=== PATIENT | female | born 1955 | race Caucasian/White ===

== ENCOUNTER 2018-04-11 00:17 | Day surgery (SDC) | payer OTHER ==
[~2018-04-11 00:17] MED LIST: ASPI81EC PO; ATEN50 PO; BUPR75 PO; ESOM20 PO; EXEM25 PO; HYDACE5 PO; LETR2.5; LEVSOD137 PO; LOPE2C PO; LORA.5 PO; Multiple Vitam1 EAC1; PROM25 PO; SERT100 PO; TRAZ100 PO; TRAZ50 PO
== END 2018-04-11 09:15 | disposition home or self-care (01) ==
LOC: ATC 00:17
DX: N39.3 Stress incontinence (female) (male) (principal)
CPT/HCPCS: 51798

== ENCOUNTER 2018-04-23 11:08 | Day surgery (SDC) | payer OTHER ==
[~2018-04-23] VITALS: Ht 160 cm; Wt 93.4 kg
[2018-04-23] MEDS ORDERED: LOSA25 (11:56)
[2018-04-23] MEDS ORDERED: HYDCHL25 (11:56)
[2018-04-23] MEDS ORDERED: Levothyroxine200 MCG (11:57)
[2018-04-23] MEDS ORDERED: ESCI20 (11:57)
[2018-04-23] MEDS ORDERED: TAMO10 (11:58)
== END 2018-04-23 13:17 | disposition home or self-care (01) ==
LOC: ORSCSDS 11:08
PROVIDERS: Internal Medicine Gastroenterology
PROC: 0DB68ZX Excision of Stomach, Via Natural or Artificial Opening Endoscopic, Diagnostic (ICD-10-PCS; principal; 2018-04-23 15:30)
PROC: 0DB58ZX Excision of Esophagus, Via Natural or Artificial Opening Endoscopic, Diagnostic (ICD-10-PCS; principal; 2018-04-23 15:30)
DX: R10.12 Left upper quadrant pain (principal); K30 Functional dyspepsia; K21.9 Gastro-esophageal reflux disease without esophagitis; F41.8 Other specified anxiety disorders; G47.33 Obstructive sleep apnea (adult) (pediatric); K44.9 Diaphragmatic hernia without obstruction or gangrene; E66.01 Morbid (severe) obesity due to excess calories; Z68.36 Body mass index [BMI] 36.0-36.9, adult; Z87.891 Personal history of nicotine dependence; Z79.899 Other long term (current) drug therapy
CPT/HCPCS: 88305; 88342; J2250; J7120

== ENCOUNTER 2025-04-02 16:19 | Inpatient (IN) | payer MEDICARE, OTHER ==
[~2025-04-02] VITALS: Ht 160 cm; Wt 170.0 kg
[~2025-04-02 16:19] MED LIST changes: +BUSPIRONE HCL7.5 M1 PO; +CARVEDILOL12.5 MG PO; +ESCI20; +ESCI20 PO; +HYDCHL25; +LOSA25; +Levothyroxine200 MCG; +QUETIAPINE FUMA5012 PO; +TAMO10
[2025-04-03] MEDS ORDERED: Haloperidol Lactate Inj. 5 MG/ML Injection IM PRN (12:20)
[2025-04-03] MEDS ORDERED: FLU VACC TS2025(65UP)/MF59C/PF 45 MCG/0.5 ML SYRINGE IM SCH (12:20)
[2025-04-03] MEDS ORDERED: LORazepam 2 MG/ML 1ML Injection IM PRN (12:25)
[2025-04-03] MEDS ORDERED: DiphenhydrAMINE HCl 50 MG/ML 1ML Vial IM PRN (12:30)
[2025-04-03] MEDS ORDERED: Ondansetron 4 MG SoluTab MM PRN (12:30)
[2025-04-03] MEDS ORDERED: Polyethylene Glycol 3350 17 gm PO PRN (12:30)
[2025-04-03] MEDS ORDERED: Aluminum Hydroxide 320MG/5ML 473 ML PO PRN (12:30)
[2025-04-03] MEDS ORDERED: EUTHYROX125 MCG PO (13:44)
[2025-04-03] MEDS ORDERED: LOSA50 PO (13:48)
[2025-04-03] MEDS ORDERED: Carvedilol12.5 MG PO (13:48)
[2025-04-03 14:08] VITALS: BP 132/83
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
[2025-04-03 18:10] VITALS: BP 156/89
[2025-04-03 19:31] VITALS: BP 129/65
--- NOTE | 2025-04-04 04:38 | NUR ---
SHIFT SSUMMARY: PMP CERTIFIED PROJECT MANAGER/O X4. DENIES SI, HI, AND AVTH. PT IN GOOD MOOD. STATES SHE DOESN'T SLEEP WELL.SHE SAYS THAT SHE HAS CPTSD AND DEPRESSION WITH ANXIETY. SLEPT WELL THROUGH THE NIGHT. WENT TO SNACK AND GROUP. PT IS AWARE THATT SHE IS DISCHARGED TO LEAVE TODAY. TALKS SOFTLY. WILL CONTINUE TO MONITOR Q 15 MIN FOR SAFETY AND WELLNESS.
[2025-04-04 08:47] VITALS: BP 156/70
[2025-04-04] MEDS ORDERED: Multivitamins 1 Tab PO SCH (09:00)
[2025-04-04 12:45] VITALS: BP 147/84
--- NOTE | 2025-04-04 17:07 | NUR ---
Patients daughter visited this evening. She was extreamly grateful stating' "it has been so long since I've seen my mom like this"! She feels that her mom has improved a great deal.
--- NOTE | 2025-04-04 17:09 | NUR ---
SHIFT SUMMARY: PT IS ALERT, ORIENTED AND COOPERATIVE WITH CARE. SHE DENIES SI, HI AND AVH THIS AM. STATES THAT SHE DID NOT SLEEP WELL AND HER MOOD IS "MEAN" . PT IS ENGAGED DURING CONVERSATION AND COMPLIANT WITH MEDCIATIONS. AFFECT IS CONSTRICTED AND HAS APPROPRIATE EYE CONTACT. SHE SPOKE WITH PCI FROM [facility]. PT C/O INCREASED ANXIETY AFTER GROUP. SHE WAS MEDICATED PER EMAR WITH PRN VISTARIL FOR MASS SCORE OF 3. PT HAD A VISIT WITH HER DAUGHTER WHICH APPEARED TO GO WELL. SHE WAS PRESENT ON THE UNIT. SHE ATTENDED GROUPS AND MEALS. SHE SPENT TIME IN THE DAY ROOM WATCHING TV AND TALKING WITH PEERS.
[2025-04-04 20:28] VITALS: BP 152/76
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
--- NOTE | 2025-04-05 05:21 | NUR ---
SHIFT SUMMARY 69 YEAR-OLD FEMALE PRESENTS WELL GROOMED. SHE IS ALERT AND ORIENTED. SHE SPEAKS IN A CLEAR VOICE AND IN AN APPROPRIATE VOLUME. SHE IS ABLE TO MAKE AND KEEP EYE CONTACT DURING CONVERSATIONS. AT THE TIME OF HER ASSESSMENT, SHE DESCRIBED HER MOOD "THIS MORNING I WAS GRUMPY, BUT NOW I'M FEELING HAPPY." SHE ALSO DENIED SI, HI, AND AVTH AT THAT TIME. SHE ATTENDED SNACK. SHE WAS COMPLIANT WITH CARE AND MEDICATION ADMINISTRATION. SHE RECEIVED THE FOLLOWING PRN MEDICATIONS: VISTARIL 50MG FOR ANXIETY (MASS=6). SHE STATED SHE HAD A VERY REALISTIC NIGHTMARE. SHE CONTINUES TO BE MONITORED EVERY 15 MINUTES FOR WELLNESS AND SAFETY.
[2025-04-05 08:13] LABS: CHOL/HDL RATIO 4.0; Cholesterol 233 mg/dL (50-200); HDL Cholesterol 58 mg/dL (>39); LDL/HDL RATIO 2.5; Low Density Lipoprotein Chol 145 mg/dL (0-110); Triglycerides 149 mg/dL (30-160); Very Low Density Lipoprot Chol 29 mg/dL (6-32)
[2025-04-05 08:51] VITALS: BP 149/88
--- NOTE | 2025-04-05 17:37 | NUR ---
SHIFT SUMMARY: PT IS ALERT, ORIENTED AND COOPERATIVE WITH CARE. SHE DENIES SI, HI AND AVH. SHE APPEARS WELL GROOMED AND HAS APPROPRIATE EYE CONTACT. STATES "I'M FEELING VERY ANXIOUS TODAY" RATES ANXIETY AT 10/10 AND WAS MEDICATED WITH PRN VISTARIL PER EMAR FOR MASS SCORE OF 7. VERBALIZED BEING FEARFUL R/T BEHAVIORS OF OTHER PATIENTS. DISCUSSED PLAN WITH PT TO HELP TO ENSURE FEELINGS OF SAFETY WHICH SHE IS AGREEABLE TO. STATES THAT SHE WOKE UP WITH A NIGHTMARE DURING THE NIGHT AND CRAWLED OUT OF HER ROOM TO GET HELP. ENCOURAGED PT TO DISCUSS THIS WITH DR. SOLER, STATES "I DON'T WANT TO TAKE THAT SLEEPING MEDICATION AGAIN". SHE WAS MEDICATED WITH PRN TYLENOL FOR C/O 4/10 NECK/HEAD PAIN PER EMAR. SHE REPORTED RELIEF FROM THE PAIN UPON REASSESSMENT. PT WAS PRESENT ON THE UNIT. SHE ATTENDED MEALS AND GROUPS. SHE HAD A VISIT WITH HER DAUGHTER THAT APPPEARED TO GO WELL. SHE SPENT TIME WATCHING TV IN THE DAY ROOM, RESING IN HER ROOM AND TALKING WITH PEERS AND STAFF.
[2025-04-05 20:40] VITALS: BP 149/76
--- NOTE | 2025-04-06 03:05 | NUR ---
NURSE NOTE PATIENT APPROACHED THE NURSES STATION AT APPROXIMATELY 0200 STATING THAT SHE HAD ANOTHER NIGHTMARE. SHE DESCRIBED THIS NIGHTMARE PEOPLE BEING KILLED. SHE HAD A MASS SCORE OF 5 AND WAS MEDICATED WITH ZYPREXA ZYDIS 10MG AT 0204. CLIENT WANTED TO SIT IN THE SENSORY ROOM AND READ A BOOK SHE TOOK HER PRN MEDICATIONS. SHE CONTINUES TO BE MONITORED EVERY 15 MINUTES FOR WELLNESS AND SAFETY.
--- NOTE | 2025-04-06 05:16 | NUR ---
SHIFT SUMMARY 69 YEAR-OLD FEMALE PRESENTS WELL GROOMED. SHE IS ALERT AND ORIENTED. SHE SPEAKS IN A CLEAR VOICE AND IN AN APPROPRIATE VOLUME. SHE IS ABLE TO MAKE AND KEEP EYE CONTACT DURING CONVERSATIONS. AT THE TIME OF HER ASSESSMENT, SHE DESCRIBED HER MOOD "CALM". SHE ALSO DENIED SI, HI, AND AVTH AT THAT TIME. SHE ATTENDED SNACK. SHE WAS COMPLIANT WITH CARE AND MEDICATION ADMINISTRATION. SHE RECEIVED THE FOLLOWING PRN MEDICATIONS: TYLENOL 650MG FOR 7/10NECK & SHOULDER PAIN, VISTARIL 50MG FOR ANXIETY AT 2119 (MASS=3), ZYPREXA ZYDIS 10MG FOR ANXIETY SECONDARY TO NIGHTMARE AT 0204 (MASS=5). SHE STATED SHE HAD A NIGHTMARE ABOUT PEOPLE BEING KILLED. SHE CONTINUES TO BE MONITORED EVERY 15 MINUTES FOR WELLNESS AND SAFETY.
--- NOTE | 2025-04-06 05:17 | NUR ---
PRN NOTE PATIENT RECEIVED THE FOLLOWING PRN MEDICATIONS DURING WEAPONS ENGINEER: TYLENOL 650MG FOR 7/10 NECK & SHOULDER PAIN, VISTARIL 50MG FOR ANXIETY AT 2119 (MASS=3), ZYPREXA ZYDIS 10MG FOR ANXIETY SECONDARY TO NIGHTMARE AT 0204 (MASS=5).
[2025-04-06 08:56] VITALS: BP 180/92
--- NOTE | 2025-04-06 16:31 | NUR ---
SHIFT SUMMARY: PT IS ALERT, ORIENTED AND COOPERATIVE WITH CARE. SHE DENIES SI, HI AND AVH. SHE APPEARS WELL GROOMED, HAS AN ANXIOUS AFFECT AND APPROPRIATE EYE CONTACT. SHE STATES THAT SHE HAD A NIGHTMARE DURING THE NIGHT AND WOKE UP AROUND 0100. STATES THAT SHE "USED MY TOOLS, COUNTING FROM 100 AND JOURNALING" AND WAS ABLE TO GO BACK TO SLEEP. STATES THAT SHE IS FEELING ANXIOUS TODAY AND RATES HER ANXIETY AT 8/10. SHE WAS MEDICATED WITH AM MEDS PER EMAR WITH PRN VISTARIL FOR MASS SCORE OF 3. SHE IS ENGAGED AND TALKATIVE DURING CONVERSATION. PRIOR TO HER DAUGHTERS VISIT PT C/O INCREASED ANXIETY THAT SHE RATED AT 7/10, STATED THAT SHE WAS "ON THE VERGE OF CRYING" SHE WAS MEDCIATED WITH VISTARIL PRN PER EMAR FOR MASS SCORE OF 3. PT VISIT WITH HER DAUGHTER APPEARED TO GO WELL. SHE WAS PRESENT FOR MEALS AND GROUPS. SHE WAS ACTIVE IN THE [place]. SPENT TIME WALKING IN THE HALLS, TALKING WITH PEERS AND STAFF AND WATCHING TV IN THE DAY ROOM. PT MONITORED WITH Q 15 MIN CHECKS FOR SAFETY PER UNIT PROTOCOL.
[2025-04-06 20:17] VITALS: BP 135/71
--- NOTE | 2025-04-06 23:39 | NUR ---
MID SHIFT SUMMARY: PT HAS HAD AN UNEVENTFUL EVENING. WATCHED TV, TALKED WITH STAFF, THEN WENT TO BED. SHE EXPRESSED FEAR ABOUT HAVING A NIGHTMARE AGAIN. OPEN LISTENING TECHNIQUES USED AND ENCOURAGED PATIENT TO NOTIFY STAFF IF EXPERIENCING SYMTPOMS. PATIENT DOES SEEM TO "MOTHER" OTHER PATIENTS AND WANT TO BE INVOLVED IN THEIR CARE AT TIMES. EASILY REDIRECTS.
--- NOTE | 2025-04-07 00:28 | NUR ---
Assumed care at 2345. Patient currently sleeping with even respirations.
--- NOTE | 2025-04-07 04:32 | NUR ---
SHIFT SUMMARY Assumed care at 2345 from Samira CHAPMAN. Patient has slept all night without waking with nightmares. (See MID SHIFT SUMMARY) PRN's given at HS were vistaril and Zyprexa. Will continue close monitoring every 15 minutes for safety and comfort per unit standard.
[2025-04-07 09:04] VITALS: BP 156/88
--- NOTE | 2025-04-07 17:14 | NUR ---
SHIFT SUMMARY PT A/O X4; PLEASANT AND COOPERATIVE WITH CARE. SHE DENIES SI, HI, AVTH. PT REPORTS DOING MUCH BETTER TODAY BECAUSE SHE SLEPT LAST NIGHT. PT REPORTED HAVING NIGHTMARES IN THE PAST, BUT AFTER STARTING MINIPRESS LAST NIGHT SHE DID NOT HAVE THEM. SHE REPORTED SOME ANXIETY RELATED TO HER GRANDDAUGHTER COMING TO VISIT AND WAS MEDICATED WITH VISTARIL PER EMR WITH GOOD EFFECT. PT'S AFFECT IS CONGRUENT TO STATED MOOD. SHE PARTICIPATED IN ALL GROUPS AND MEALS THIS SHIFT AND WILL POTENTIALLY DISCHARGE HOME TOMORROW.
--- NOTE | 2025-04-08 04:52 | NUR ---
SHIFT SUMMARY: PT A/O X4. COOPERATIVE AND PLEASANT. PT DENIES SI, HI, AND AVTH. PT IN HAPPY MOOD TONIGHT SHE SLEPT GOOD LAST NIGHT AND HAD NO NIGHTMARES. DID NOT GO TO SNACK TONIGHT SHE FEELS SO FULL "THERE IS SO MUCH FOOD HERE". GIVEN NIGHT MEDS AND PT WENT TO BED. PT AWOKE AROUND 4 AM WITH NIGHTMARES AND WAS UPSET. ALSO BILATERAL KNEE PAIN. GIVEN ZYPREXA FOR THE NIGHTMARES AND TYLENOL FOR KNEE PAIN 10/10 PER PT. PT IS TO POSSIBLY GO HOME TODAY. PT ENJOYED VISIT FROM GRANDDAUGHTER TODAY. 0500 PT QUIET AND RESTING ON BED. WILL CONTINUE TO MONITOR Q 15 MINS FOR SAFETY AND WELLNESS
[2025-04-08 08:17] VITALS: BP 147/77
[2025-04-08 17:14] VITALS: BP 166/82
--- NOTE | 2025-04-08 17:49 | NUR ---
SHIFT SUMMARY PT DENIES SI, HI, AVTH. ENDORSES ANXIETY ABOUT NIGHTMARES, BUT APPEARED REASSURED WHEN TOLD DISCHARGE WOULD BE TOMORROW. PT ANXIETY TREATED PER EMAR TODAY. PT TOLD DAUGHTER THAT SHE FELT RESTLESS AND TOLD THIS RN THAT SHE HAS TREMORS THAT ARE "NEW"; DR SOLER NOTIFIED W/ ORDERS TO CONTINUE MIRTAZIPINE. NO OTHER ACUTE EVENTS TODAY.
[2025-04-08 19:22] VITALS: BP 120/70
--- NOTE | 2025-04-09 04:42 | NUR ---
SHIFT SUMMARY PATIENT UP IN MILIE[place], WATCHING MOVIE AND VISITING WITH STAFF AND PEERS. VERBALIZED THAT SHE WAS FEELING FRUSTRATED AT THE START OF THE DAY, AND VERBALIZED THAT SHE IS NOW FEELING CALM AND WAS ABLE TO LAUGH WITH PEERS ON THE UNIT DURING THE DAY. DENIES SI, HI, OR AVTH. COOPERATIVE WITH HS MEDICATIONS, APPEARS TO BE SLEEPING WELL T/O NIGHT RESP EVEN AND UNLABORED. AWAKE AT 0400 VERBALIZED THAT SHE FEELS LIKE SHE SLEPT WELL AND ONLY HAD GOOD DREAMS. CONTINUE TO MONITOR Q15MIN
[2025-04-09 07:12] VITALS: BP 135/79
--- NOTE | 2025-04-09 08:32 | NUR ---
IMPORTANT DISCHARGE INFORMATION PATIENT TO BE DISCHARGED TODAY. HER DAUGHTER (JESSIKA) WILL BE PICKING HER UP AROUND 11AM. SHE CAN BE REACHED AT . ALL PARTIES VERBALIZE AN UNDERSTANDING. FOLLOW UP WITH YOUR PCP DR. GALLARDO ON 04/14/25 AT 11:30AM FOLLOW UP WITH [facility] NEEDED OPEN [facility] FAX NUMBER: RESOURCES: [facility]
[2025-04-09] MEDS ORDERED: MIRT15 PO (09:24)
[2025-04-09] MEDS ORDERED: PRAZ1 PO (09:25)
--- NOTE | 2025-04-09 11:21 | NUR ---
SHIFT ASSESSMENT: PT DENIED SI, HI AND AVH. SHE ENDORSED ANXIETY 6-7/10w "RELATED TO LEAVING HERE...I'M A LITTLE SCARED." PT WAS GIVEN VISTARIL 50MG FOR MASS OF 3. SHE DESCRIBED HER MOOD , "I'M FEELING A LITTLE WEEPY...SAD TO LEAVE...THIS IS THE BEST THING THAT EVER HAPPENED TO ME. PT'S AFFECT WAS CONGRUENT TO STATED MOOD. PT WAS COOPERATIVE WITH MEDICATIONS. SHE HAS BEEN ACTIVE IN GROUPS AND THE PT MILIEU.
--- NOTE | 2025-04-09 11:32 | NUR ---
DISCHARGE NOTE: 11:16 PT DISCHARGED TO HOME VIA HER DAUGHTER IN HER POV. SHE LEFT WITH ALL OF HER BELONGINGS AND HER DISCHARGE INSTRUCTIONS. SHE REPORTED AND SIGNED UNDERSTANDING OF ALL OF HER D/C INSTRUCTIONS. PT REPORTED, "I WILL GO TO MY APPOINTMENTS AND TAKE MY MEDS! THIS ADMISSION WAS THE BEST FOR ME."
== END 2025-04-09 11:16 | disposition home or self-care (01) | DRG 882 ==
LOC: BHU 16:19
PROVIDERS: ADMIT Psychiatry & Neurology Psychiatry
DX: F43.25 Adjustment disorder with mixed disturbance of emotions and conduct (principal); R45.851 Suicidal ideations; F33.2 Major depressive disorder, recurrent severe without psychotic features; F43.12 Post-traumatic stress disorder, chronic; R45.850 Homicidal ideations; Z95.5 Presence of coronary angioplasty implant and graft; Z88.2 Allergy status to sulfonamides; Z88.8 Allergy status to other drugs, medicaments and biological substances; Z79.890 Hormone replacement therapy; Z79.899 Other long term (current) drug therapy; Z87.891 Personal history of nicotine dependence
CPT/HCPCS: 36415; 80053; 80061; 80320; 81001; 81025; 83036; 85025; 87077; 87086; 87186; 87426-QW; 99285; A9270; G0378; G0480